=== PATIENT | male | born 1960 | race African-American/Black ===

== ENCOUNTER 2022-02-17 18:29 | Emergency (ER) | payer BC ==
[2022-02-17] MEDS ORDERED: SODIUM CHLORIDE 0.9% 1,000 ML IV STA (21:14)
[2022-02-17] MEDS ORDERED: ONDANSETRON 4 MG/2 ML VIAL IVP STA (21:14)
--- NOTE | 2022-02-17 21:28 | ED ---
General Adult HPI - General Chief complaint: Upper Respiratory Infection Stated complaint: chills, sweats Time Seen by Provider: 02/17/22 20:45 Source: patient, RN notes reviewed Mode of arrival: ambulatory Limitations: no limitations - History of Present Illness Initial comments: 61-year-old male presents to the emergency department with complaints of fever and chills along with nausea and diarrhea. Patient states he had several episodes of diarrhea throughout the day today. Reports able to tolerate some oral intake. States he was at a large gathering on and shared a meal with his family; no other sick family members. Did not take anything to treat symptoms prior to arrival. Denies headache, dizziness, chest pain, palpitations, abdominal pain, flank pain, back pain, dysuria, and bloody diarrhea. - Related Data Allergies Allergy/AdvReac Type Severity Reaction Status Date / Time No Known Allergies Allergy Verified 02/17/22 19:06 Review of Systems ROS Statement: Those systems with pertinent positive or pertinent negative responses have been documented in the HPI. ROS Other: All systems not noted in ROS Statement are negative. Past Medical History Past Medical History: No Reported History History of Any Multi-Drug Resistant Organisms: None Reported Past Surgical History: No Surgical Hx Reported Past Psychological History: No Psychological Hx Reported Smoking Status: Never smoker Past Alcohol Use History: Occasional Past Drug Use History: None Reported General Exam Limitations: no limitations General appearance: alert, in no apparent distress ENT exam: Present: normal exam, normal oropharynx, mucous membranes moist Respiratory exam: Present: normal lung sounds bilaterally. Absent: respiratory distress, wheezes, rales, rhonchi, stridor Cardiovascular Exam: Present: regular rate, normal rhythm, normal heart sounds. Absent: systolic murmur, diastolic murmur, rubs, gallop, clicks GI/Abdominal exam: Present: soft, normal bowel sounds. Absent: distended, tenderness, guarding, rebound, rigid Back exam: Absent: CVA tenderness (R), CVA tenderness (L) Neurological exam: Present: alert, oriented X3, CN II-XII intact Psychiatric exam: Present: normal affect, normal mood Skin exam: Present: warm, dry, intact, normal color. Absent: rash Course Vital Signs 02/17/22 02/17/22 19:04 22:53 Temperature 98 F 98.3 F Pulse Rate 102 H 83 Respiratory 20 18 Rate Blood Pressure 133/91 137/91 O2 Sat by Pulse 99 97 Oximetry - Reevaluation(s) Reevaluation #1: 02/17/22 22:30 Upon reassessment, patient appears to be resting comfortably. No episodes of vomiting or diarrhea while present in the emergency department. His sister is present at bedside. Updated on results. Discussed follow-up care with patient. He verbalizes understanding and agrees with this plan. Medical Decision Making - Medical Decision Making This is a pleasant 61-year-old male with no significant past medical history who presents to the emergency Department with complaints of diarrhea, chills, body aches. Upon exam, patient is well-appearing and in no acute distress. Physical exam findings are unremarkable. No recent antibiotic use. Laboratory studies were obtained. No leukocytosis, hemoglobin 16.2, hematocrit 50.6. No electrolyte abnormality. Cepheid negative. Patient was given Zofran and fluids with improvement. He will be discharged home to follow up with his PCP for a recheck as needed. Return parameters were discussed in detail. Patient verbalizes understanding and agrees with this plan. Attending: Laurie Was pt. sent in by a medical professional or institution? @ -No Did you speak to anyone other than the patient for history? @ -No Did you review nursing and triage notes? @ -Yes, agree Were old charts reviewed? @ -No Differential Diagnosis? @ -Viral illness, diarrhea, abdominal pain, food sensitivity/poisoning, this is not meant to be an exhaustive list EKG interpreted by me (3pts min.)? @ -Not applicable X-rays interpreted by me (1pt min.)? @ -Not applicable CT interpreted by me (1pt min.)? @ -Not applicable U/S interpreted by me (1pt. min.)? @ -Not applicable What testing was considered but not performed? (CT, X-rays, U/S, labs)? Why? @ -Considered CT of the abdomen and pelvis, however patient was not experiencing significant discomfort associated with diarrhea and was resting comfortably. Given that his abdomen was soft CT deferred. Stool culture would have been ordered, however patient was actively having diarrhea. What meds were considered but not given? Why? @ -None Did you discuss the management of the patient with other professionals? @ -None Did you reconcile home meds? @ -No Was smoking cessation discussed for >3mins.? @ -No Was critical care preformed (if so, how long)? @ -No Were there social determinants of health that impacted care today? How? (Homelessness, low income, unemployed, alcoholism, drug addiction, transportation, low edu. Level, literacy, decrease access to med. care, detention, rehab)? @ -No Was there de-escalation of care discussed even if they declined? (Discuss DNR or withdrawal of care, Hospice)? @ -No What co-morbidities impacted this encounter? (DM, HTN, Smoking, COPD, CAD, Cancer, CVA, Hep., AIDS, mental health diagnosis, sleep apnea, morbid obesity)? @No Was patient admitted / discharged? @ -Discharged Undiagnosed new problem with uncertain prognosis? @ -None Drug Therapy requiring intensive monitoring for toxicity (Heparin, Nitro, Insulin, Cardizem)? @ -None Were any procedures done? @ -None Diagnosis/symptom? @ -Viral illness Acute, or Chronic, or Acute on Chronic? @ -Acute Uncomplicated (without systemic symptoms) or Complicated (systemic symptoms)? @ -Uncomplicated Side effects of treatment? @ -None Exacerbation, Progression, or Severe Exacerbation] @ -No Poses a threat to life or bodily function? @ -No - Lab Data Result diagrams: 02/17/22 21:48 02/17/22 21:48 Lab Results 02/17/22 02/17/22 02/17/22 Range/Units 19:08 21:48 21:48 WBC 5.1 (3.8-10.6) k/uL RBC 5.56 (4.30-5.90) m/uL Hgb 16.2 (13.0-17.5) gm/dL Hct 50.6 (39.0-53.0) % MCV 90.9 (80.0-100.0) fL MCH 29.2 (25.0-35.0) pg MCHC 32.1 (31.0-37.0) g/dL RDW 13.4 (11.5-15.5) % Plt Count 226 (150-450) k/uL MPV 6.9 Neutrophils % 72 % Lymphocytes % 16 % Monocytes % 6 % Eosinophils % 4 % Basophils % 0 % Neutrophils # 3.7 (1.3-7.7) k/uL Lymphocytes # 0.8 L (1.0-4.8) k/uL Monocytes # 0.3 (0-1.0) k/uL Eosinophils # 0.2 (0-0.7) k/uL Basophils # 0.0 (0-0.2) k/uL Hypochromasia Slight Sodium 138 (137-145) mmol/L Potassium 4.0 (3.5-5.1) mmol/L Chloride 105 (98-107) mmol/L Carbon Dioxide 26 (22-30) mmol/L Anion Gap 7 mmol/L BUN 9 (9-20) mg/dL Creatinine 1.03 (0.66-1.25) mg/dL Est GFR (CKD-EPI)AfAm 90 (>60 ml/min/1.73 sqM) Est GFR (CKD-EPI)NonAf 78 (>60 ml/min/1.73 sqM) Glucose 96 (74-99) mg/dL Calcium 8.9 (8.4-10.2) mg/dL Total Bilirubin 1.6 H (0.2-1.3) mg/dL AST 34 (17-59) U/L ALT 29 (4-49) U/L Alkaline Phosphatase 48 (38-126) U/L Total Protein 7.0 (6.3-8.2) g/dL Albumin 4.1 (3.5-5.0) g/dL Influenza Type A (PCR) Not Detected (Not Detectd) Influenza Type B (PCR) Not Detected (Not Detectd) RSV (PCR) Not Detected (Not Detectd) SARS-CoV-2 (PCR) Not Detected (Not Detectd) Disposition Clinical Impression: Viral illness Disposition: HOME SELF-CARE Condition: Stable Instructions (If sedation given, give patient instructions): Gastroenteritis (ED) Additional Instructions: Increase intake of fluids. Consider electrolyte solution such as gatorade or pedialyte. Zofran is a nausea medication that is used to settle the stomach. Follow-up with your PCP for a recheck as needed. Return to the emergency department with any new, worsening, or concerning symptoms. Is patient prescribed a controlled substance at d/c from ED?: No Referrals: Enrique Zimmer MD [Primary Care Provider] - 1-2 days Time of Disposition: 22:46
[2022-02-17 22:06] LABS: Basophils % (A) 0 %; Eosinophils # (A) 0.2 k/uL (0-0.7); Eosinophils % (A) 4 %; HCT 50.6 % (39.0-53.0); HGB 16.2 gm/dL (13.0-17.5); Hypochromasia Slight; Lymphocytes # (A) 0.8 k/uL (1.0-4.8); Lymphocytes % (A) 16 %; MCH 29.2 pg (25.0-35.0); MCHC 32.1 g/dL (31.0-37.0); MCV 90.9 fL (80.0-100.0); Mean Platelet Volume 6.9; Monocytes # (A) 0.3 k/uL (0-1.0); Monocytes % (A) 6 %; Neutrophils # (A) 3.7 k/uL (1.3-7.7); Neutrophils % (A) 72 %; Platelet Count 226 k/uL (150-450); RBC 5.56 m/uL (4.30-5.90); RDW 13.4 % (11.5-15.5); WBC 5.1 k/uL (3.8-10.6)
[2022-02-17 22:15] LABS: Albumin 4.1 g/dL (3.5-5.0); Calcium 8.9 mg/dL (8.4-10.2); Total Bilirubin 1.6 mg/dL (0.2-1.3)
[2022-02-17] MEDS ORDERED: ONDANSETRON 4 MG ODT STARTER PACK 2 TAB BTL PO STA (22:46)
[2022-02-17 22:54] VITALS: BP 137/91; PULSE 83; RESP 18; TEMP 98.3
[2022-02-17] MEDS ORDERED: PANTOPRAZOLE 40 MG TABLET PO STA (23:14)
== END 2022-02-17 23:43 | disposition home or self-care (01) ==
LOC: EC 18:29
DX: B34.9 Viral infection, unspecified (principal); Z20.822 Contact with and (suspected) exposure to COVID-19
CPT/HCPCS: 36415; 80053; 85025; 87636; 99283; 96374; 96361; J2405; S0119

== ENCOUNTER 2023-06-06 07:37 | Emergency (ER) | payer BC, OTHER ==
--- NOTE | 2023-06-06 08:00 | ED ---
Extremity Problem HPI - General Chief complaint: Extremity Injury, Upper Stated complaint: L Wrist Swelling Time Seen by Provider: 06/06/23 07:56 Source: patient, RN notes reviewed Mode of arrival: ambulatory Limitations: no limitations - History of Present Illness Initial comments: This is a 63-year-old male who presents to the emergency department for left wrist swelling. 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 Yesterday he started to notice that he had swelling in his left wrist, and wonders if it may be related to the job. Denies any pain with this. States that it looks similar to a ganglion cyst he had on the back of the hand many years ago that he had rem tiny. MD Complaint: extremity swelling - Related Data Allergies Allergy/AdvReac Type Severity Reaction Status Date / Time No Known Allergies Allergy Verified 06/06/23 07:50 Review of Systems ROS Statement: Those systems with pertinent positive or pertinent negative responses have been documented in the HPI. ROS Other: All systems not noted in ROS Statement are negative. Past Medical History Past Medical History: No Reported History History of Any Multi-Drug Resistant Organisms: None Reported Past Surgical History: No Surgical Hx Reported Past Psychological History: No Psychological Hx Reported Smoking Status: Never smoker Past Alcohol Use History: Occasional Past Drug Use History: None Reported General Exam Limitations: no limitations General appearance: alert, in no apparent distress Head exam: Present: atraumatic, normocephalic, normal inspection Respiratory exam: Present: normal lung sounds bilaterally. Absent: respiratory distress, wheezes, rales, rhonchi, stridor Cardiovascular Exam: Present: regular rate, normal rhythm, normal heart sounds. Absent: systolic murmur, diastolic murmur, rubs, gallop, clicks Extremities exam: Present: other (Localized swelling to the lateral aspect of the left wrist. No tenderness.) Neurological exam: Present: alert, oriented X3, CN II-XII intact Psychiatric exam: Present: normal affect, normal mood Skin exam: Present: warm, dry, intact, normal color. Absent: rash Course Vital Signs 06/06/23 07:48 Temperature 98 F Pulse Rate 79 Respiratory 20 Rate Blood Pressure 137/81 O2 Sat by Pulse 99 Oximetry Medical Decision Making - Medical Decision Making This is a 63-year-old male who presents to the emergency department for left wrist swelling. Was pt. sent in by a medical professional or institution? @ -No Did you speak to anyone other than the patient for history? @ -No Did you review nursing and triage notes? @ -Yes, and I agree, it is accurate with regards to the patient's symptoms. Were old charts reviewed? @ -No Differential Diagnosis? @ -Differential Musculoskeletal: Muscular strain, contusion, ligament sprain, fracture, arthritis, septic arthritis, bursitis, cellulitis, muscle spasm, nerve compression, DVT, arterial occlusion, herpes zoster, electrolyte abnormality, tumor.... This is not meant to be in all inclusive list EKG interpreted by me (3pts min.)? @ -Not obtained X-rays interpreted by me (1pt min.)? @ -X-ray of the left wrist obtained. My interpretation identifies no acute fractures. CT interpreted by me (1pt min.)? @ -Not obtained U/S interpreted by me (1pt. min.)? @ -Not obtained What testing was considered but not performed? (CT, X-rays, U/S, labs)? Why? @ -None What meds were considered but not given? Why? @ -None Did you discuss the management of the patient with other professionals? @ -No Did you reconcile home meds? @ -No Was smoking cessation discussed for >3mins.? @ -No Was critical care preformed (if so, how long)? @ -No Were there social determinants of health that impacted care today? How? (Homelessness, low income, unemployed, alcoholism, drug addiction, transportation, low edu. Level, literacy, decrease access to med. care, fpc, rehab)? @ -No Was there de-escalation of care discussed even if they declined? (Discuss DNR or withdrawal of care, Hospice)? @ -No What co-morbidities impacted this encounter? (DM, HTN, Smoking, COPD, CAD, Cancer, CVA, Hep., AIDS, mental health diagnosis, sleep apnea, morbid obesity)? @ -Osteoarthritis Was patient admitted / discharged? @ -Discharged. X-ray of the left wrist obtained demonstrating moderate to severe osteoarthritic changes at the basal joint of the left thumb. They did note some type of linear density, possibly related to foreign body over the region of the hypothenar eminence. Patient had no irregularities on exam, tenderness, or deformities to suggest a foreign body. Given the location and presentation of the cyst, advised that it is likely another ganglion cyst, especially given the repetitive use of the hand recently. Advised using a brace or splint to put pressure on the area and help immobilize it. Also advised anti-inflammatories for any discomfort. Information for orthopedic follow-up provided in the event the cyst needs to be removed or drained. Patient discharged home in stable condition. Undiagnosed new problem with uncertain prognosis? @ -None Drug Therapy requiring intensive monitoring for toxicity (Heparin, Nitro, Insulin, Cardizem)? @ -None Were any procedures done? @ -None Diagnosis/symptom? @ -Ganglion cyst Acute, or Chronic, or Acute on Chronic? @ -Acute Uncomplicated (without systemic symptoms) or Complicated (systemic symptoms)? @ -Uncomplicated Side effects of treatment? @ -None Exacerbation, Progression, or Severe Exacerbation] @ -Not applicable Poses a threat to life or bodily function? @ -No Return precautions reviewed in depth, the patient is instructed to return to the emergency department with any new, worsening, or concerning symptoms. Patient verbalized understanding. This case was discussed in detail with the attending ED physician, Dr. Bush. Presentation, findings, and treatment plan discussed in detail as well. - Radiology Data Radiology results: report reviewed, image reviewed Disposition Clinical Impression: Ganglion cyst Disposition: HOME SELF-CARE Instructions (If sedation given, give patient instructions): Ganglion Cyst (ED) Additional Instructions: Return to the emergency department with any new, worsening, or concerning symptoms. You can take anti-inflammatories such as ibuprofen if you have any discomfort. You can purchase a brace to wear around the wrist to immobilize the area and keep pressure on the cyst. Contact orthopedics as listed below for a follow-up appointment and further evaluation. Is patient prescribed a controlled substance at d/c from ED?: No Referrals: Gale Horvath MD [Primary Care Provider] - 1-2 days Ignacia Tong DO [Doctor of Osteopathic Medicine] - 1-2 days Harish Roth DO [Doctor of Osteopathic Medicine] - 1-2 days Time of Disposition: 09:04
--- NOTE | 2023-06-06 08:51 | XR ---
EXAMINATION TYPE: XR wrist complete LT DATE OF EXAM: 06/06/2023 COMPARISON: NONE HISTORY: 63-year-old male swelling TECHNIQUE: 4 views FINDINGS: Moderate to severe degenerative change first CMC joint and mild at the triscaphe joint. Mod erate degenerative change distal radioulnar joint with joint space narrowing, marginal spurring, and subchondral cystic change. The radiocarpal joint and midcarpal compartment appear intact. Some type o f a linear density projects over the region of the hypothenar eminence. Refer to the image annotation s. IMPRESSION: 1. Moderate to severe osteoarthritic change basal joint of the thumb. Moderate OA DRUJ. 2. Some type of linear density, possible retained foreign body projects over the expected region of t he hypothenar eminence. Refer to the image annotations. 3. No acute osseous abnormality seen.
[2023-06-06 10:22] VITALS: BP 141/79; PULSE 74; RESP 18; TEMP 98
== END 2023-06-06 09:39 | disposition home or self-care (01) ==
LOC: EC 07:37
DX: M67.432 Ganglion, left wrist (principal)
CPT/HCPCS: 99283

== ENCOUNTER 2023-11-26 18:00 | Emergency (ER) | payer BC ==
[2023-11-26 19:58] LABS: Basophils % (A) 1 %; Eosinophils # (A) 0.1 k/uL (0-0.7); Eosinophils % (A) 2 %; HGB 13.9 gm/dL (13.0-17.5); Hypochromasia Slight; Lymphocytes # (A) 0.9 k/uL (1.0-4.8); Lymphocytes % (A) 27 %; MCH 28.1 pg (25.0-35.0); MCHC 31.5 g/dL (31.0-37.0); Mean Platelet Volume 6.7; Monocytes # (A) 0.2 k/uL (0-1.0); Monocytes % (A) 7 %; Neutrophils % (A) 60 %; Platelet Count 225 k/uL (150-450); RBC 4.95 m/uL (4.30-5.90); RDW 13.5 % (11.5-15.5); WBC 3.3 k/uL (3.8-10.6)
[2023-11-26 20:07] LABS: ALT 28 U/L (4-49); AST 38 U/L (17-59); African American GFR (CKD) >90 (>60 ml/min/1.73 sqM); Albumin 4.7 g/dL (3.5-5.0); Alkaline Phosphatase 44 U/L (38-126); Anion Gap 3 mmol/L; Blood Urea Nitrogen 15 mg/dL (9-20); Calcium 9.6 mg/dL (8.4-10.2); Carbon Dioxide 27 mmol/L (22-30); Chloride 107 mmol/L (98-107); Glucose 86 mg/dL (74-99); Non-African American GFR(CKD) 83 (>60 ml/min/1.73 sqM); Potassium 3.7 mmol/L (3.5-5.1); Sodium 137 mmol/L (137-145); Total Protein 7.6 g/dL (6.3-8.2)
--- NOTE | 2023-11-26 20:37 | ED ---
General Adult HPI - General Chief complaint: Dizziness Stated complaint: dizzy Time Seen by Provider: 11/26/23 19:13 Source: patient Mode of arrival: wheelchair Limitations: no limitations - Related Data Allergies Allergy/AdvReac Type Severity Reaction Status Date / Time No Known Allergies Allergy Verified 06/06/23 07:50 Review of Systems ROS Statement: Those systems with pertinent positive or pertinent negative responses have been documented in the HPI. ROS Other: All systems not noted in ROS Statement are negative. Past Medical History Past Medical History: Hyperlipidemia, Hypertension History of Any Multi-Drug Resistant Organisms: None Reported Past Surgical History: No Surgical Hx Reported Past Psychological History: No Psychological Hx Reported Smoking Status: Never smoker Past Alcohol Use History: Occasional Past Drug Use History: None Reported General Exam Limitations: no limitations Course Vital Signs 11/26/23 18:15 Temperature 97.7 F Pulse Rate 77 Respiratory 18 Rate Blood Pressure 179/101 O2 Sat by Pulse 100 Oximetry Medical Decision Making - Lab Data Result diagrams: 11/26/23 19:48 11/26/23 19:48 Lab Results 11/26/23 11/26/23 Range/Units 19:48 19:48 WBC 3.3 L (3.8-10.6) k/uL RBC 4.95 (4.30-5.90) m/uL Hgb 13.9 (13.0-17.5) gm/dL Hct 44.0 (39.0-53.0) % MCV 89.0 (80.0-100.0) fL MCH 28.1 (25.0-35.0) pg MCHC 31.5 (31.0-37.0) g/dL RDW 13.5 (11.5-15.5) % Plt Count 225 (150-450) k/uL MPV 6.7 Neutrophils % 60 % Lymphocytes % 27 % Monocytes % 7 % Eosinophils % 2 % Basophils % 1 % Neutrophils # 2.0 (1.3-7.7) k/uL Lymphocytes # 0.9 L (1.0-4.8) k/uL Monocytes # 0.2 (0-1.0) k/uL Eosinophils # 0.1 (0-0.7) k/uL Basophils # 0.0 (0-0.2) k/uL Hypochromasia Slight Sodium 137 (137-145) mmol/L Potassium 3.7 (3.5-5.1) mmol/L Chloride 107 (98-107) mmol/L Carbon Dioxide 27 (22-30) mmol/L Anion Gap 3 mmol/L BUN 15 (9-20) mg/dL Creatinine 0.97 (0.66-1.25) mg/dL Est GFR (CKD-EPI)AfAm >90 (>60 ml/min/1.73 sqM) Est GFR (CKD-EPI)NonAf 83 (>60 ml/min/1.73 sqM) Glucose 86 (74-99) mg/dL Calcium 9.6 (8.4-10.2) mg/dL Magnesium 2.0 (1.6-2.3) mg/dL Total Bilirubin 2.0 H (0.2-1.3) mg/dL AST 38 (17-59) U/L ALT 28 (4-49) U/L Alkaline Phosphatase 44 (38-126) U/L Total Protein 7.6 (6.3-8.2) g/dL Albumin 4.7 (3.5-5.0) g/dL Disposition Clinical Impression: Hypertension Disposition: HOME SELF-CARE Condition: Good Instructions (If sedation given, give patient instructions): Hypertension (ED) Is patient prescribed a controlled substance at d/c from ED?: No Referrals: Gale Horvath MD [Primary Care Provider] - 1-2 days
[2023-11-26] MEDS: cloNIDine HCL 0.2 MG TAB PO STA (20:41)
[2023-11-26 21:27] VITALS: BP 160/96; PULSE 58; RESP 18; TEMP 98.1
== END 2023-11-26 21:27 | disposition home or self-care (01) ==
LOC: EC 18:00
DX: I10 Essential (primary) hypertension (principal)
CPT/HCPCS: 36415; 80053; 83735; 85025; 93005; 99284